=== PATIENT | female | born 1975 | race Caucasian/White ===

== ENCOUNTER 2016-07-17 01:40 | Emergency (ER) | payer OTHER ==
[2016-07-17] MEDS ORDERED: NORMAL SALINE 1,000 ML IV PRN (02:09)
--- NOTE | 2016-07-17 02:12 | ERNOTE ---
ER Female HPI Date of Service: 07/17/16 Stated Complaint: 12.5 WEEKS , HEAVY VAGINAL BLEEDING Presenting Symptoms: vaginal bleeding, other - cramping Time Seen by Provider: 07/17/16 02:05 Source: patient Exam Limitations: no limitations Immunizations: IMMUNIZATION HX Immunizations Up to Date Yes History of Influenza Vaccine Yes Hx Pneumococcal Vaccination No Allergies/Adverse Reactions: Allergies No Known Allergies Allergy (Verified 11/23/15 18:45) Home Medications: HOME MEDICATIONS Labetalol HCl [Trandate] 200 mg PO BID #60 tablet 05/07/15 [Last Taken Unknown] [id number]/FA/Omega3/Dha/Fish Oil [ Gummies] 1 each PO DAILY 07/17/16 [Last Taken Unknown] - History of Present Illness Narrative: Awoke about mid-night with a pool of blood on her bed. Came to ED and started to note cramping. 12 weeks . [id number] Review of Systems - Review of Systems Constitutional: Present: no symptoms reported Respiratory: Present: no symptoms reported Cardiology: Present: no symptoms reported Gastrointestinal/Abdominal: Present: no symptoms reported Genitourinary: Present: no symptoms reported Musculoskeletal: Present: no symptoms reported - Patient's Past Medical History Patient History - Medical: Obesity Patient History - Cardiac/Respiratory: No pertinent hx Patient History - Cancer: No Hx of Cancer Patient History - Surgical Procedures: No surgical history Patient History - Other: None LMP (Calendar): 11/19/13 - Family History Mother Family History - Medical: No pertinent hx Family History - Cardiac/Respiratory: Angina, CVA/Stroke, Hypertension Father Family History - Medical: History Unknown Family History - Cardiac/Respiratory: History Unknown - Social History Living Situations: spouse Abuse History: No History of abuse Psych History: No pertinent hx Does anyone smoke in the home?: No Smoking Status: Never smoker Alcohol Use: none Drug Use: none - Immunizations Immunizations Up to Date: Yes Hx Pneumococcal Vaccination: No History of Influenza Vaccine: Yes Physical Exam - Physical Exam General Appearance: Present: wd/wn, alert, mild distress Eye Exam: Normal inspection: bilateral Ears, Nose, Throat: Present: normal ENT inspection Neck: Present: normal inspection Respiratory: Present: no respiratory distress Cardiovascular/Chest: Present: regular rate, rhythm Gastrointestinal/Abdominal: Present: nontender, soft Pelvic Exam: Present: active bleeding - Large clot and tissue passed prior to exam. Vaginal vault with moderate amount of blood. Cervical os open with stream of BRB. ED Progress - Results and Orders Patient's Lab Results:: I have reviewed the patient's lab results. - Vital Signs Patient's Vital Signs:: I have reviewed the patient's vital signs. Vital Signs: Vital Signs 07/17/16 01:47 Temperature 38.0 C H Pulse Rate 100 Respiratory 18 Rate Blood Pressure 147/101 O2 Sat by Pulse 98 Oximetry - CT/Ultrasound CT/Ultrasound Narrative: No IUP or debrie seen - Progress/Reassessment Chief Complaint: Genitourinary Problem Progress Note-Subjective: 07/17/16 03:48 Feeling better. Cramping and bleeding decreased. US pending. Dr. Lao (on-call) aware and will communicate US results. 07/17/16 05:14 US noted and Rh positive. Dr. Lao aware and advised she follow up with the office in 10-14 days. Plan - Plan Plan: Home Follow up with office Departure Clinical Impression: Spontaneous - Departure Disposition: Home self-care Condition: Good Instructions: Miscarriage, [id number] Additional Instructions: Force fluids Follow up with OB in 10-14 days. Referrals: Richie Bhardwaj DO [Primary Care Provider] -
--- OUTSIDE RECORDS SUMMARY | 2016-07-17 02:13 | XMS REPORT | Continuity of Care Document ---
:1975 Author Organization [facility] ([facility]) Address [address] [place] [address] Phone [phone] Care Team Providers Name Role Phone Provider, No-Primary Care Primary Care Provider Unavailable Source Comments This disclosure is being made pursuant to the Care Everywhere program, applicable federal and state laws, and may not contain all informaitonavailable regarding this patient.[facility] ([facility]) Active Allergies and Adverse Reactions No Known Allergies Current Medications No known medications Active Problems Problem Noted Date Supervision of high-risk 08/05/2014 Advanced maternal age (AMA) in 08/05/2014 abnormality affecting management of mother 08/05/2014 Overview: Short femur Polyhydramnios in third trimester, antepartum complication 08/05/2014 Social History Tobacco Use Types Packs/Day Years Used Date Never Smoker Alcohol Use Drinks/Week oz/Week Comments No Last Filed Vital Signs Vital Sign Reading Time Taken Blood Pressure 135/79 08/05/2014 10:38 AM CDT Pulse 81 08/05/2014 10:38 AM CDT Temperature 36.6 C (97.9 F) 08/05/2014 10:38 AM CDT Respiratory Rate 14 08/05/2014 10:38 AM CDT Height 1.56 m (5' 1.42") 08/05/2014 10:08 AM CDT Weight 96.7 kg (213 lb 3 oz) 08/05/2014 10:38 AM CDT Body Mass Index 39.74 08/05/2014 10:38 AM CDT Oxygen Saturation - - Plan of Care Health Maintenance Due Date Last Done Comments Hepatitis B Vaccine (1 of 3 - Primary Series) 1975 Tdap Vaccine 1988 Lipid Disorder Screening 06/26/1995 MMR Vaccine 06/26/1995 Td Vaccine 06/26/1995 Cervical Cancer Screening 06/26/2007 Influenza Vaccine: Seasonal (#1) 09/06/2015 Results from Last 3 Months Not on file
[2016-07-17 02:21] LABS: Hematocrit 39.5 % (37.0-47.0); Hemoglobin 12.7 gm/dL (12.5-16.0); Mean Cell Volume 82.6 fl (78-100); Mean Corpuscular Hemoglobin 26.6 pg (27-31); Mean Corpuscular Hgb Conc 32.2 g/dl (32-36); Mean Platelet Volume 11.6 fl (6.0-9.5); Neutrophil # 6.6 K/mm3 (1.3-6.0); Neutrophil % 71.6 % (42-75.0); Platelet Count 246 K/mm3 (150-450); Red Blood Count 4.78 M/mm3 (4.2-5.4); Red Cell Distribution Width 15.1 % (11.5-14.0); White Blood Count 9.2 K/mm3 (4.0-10.5)
[2016-07-17] MEDS ORDERED: OXYTOCIN 20 UNITS in RINGERS SOLUTION,LACTATED 1,000 ML IV ONE ×2 (02:49→06:06)
[2016-07-17] MEDS ORDERED: HYDROmorphone HCL 1 MG/ML DISP.SYRIN IV ONE (02:49)
[2016-07-17 03:06] LABS: Albumin * 3.2 gm/dl (3.4-5.0); Anion Gap 15.9 mmol/L (6.8-13.8); BUN/Creatinine Ratio 19.4 (9.0-21.6); Bilirubin, Total 0.2 mg/dL (0.0-1.1); Ca. Corrected For Albumin 8.9 mg/dL (8.4-10.2); Calcium * 8.6 mg/dL (7.9-10.9); Potassium 3.9 mmol/L (3.4-4.6); Total Protein 7.7 gm/dL (6.2-8.2)
[2016-07-17] MEDS ORDERED: HYDROmorphone HCL 1 MG/ML DISP.SYRIN ONE (03:15)
[2016-07-17 05:59] VITALS: BP 127/91
== END 2016-07-17 06:29 | disposition home or self-care (01) ==
LOC: ER 01:40
DX: O03.9 Complete or unspecified spontaneous abortion without complication (principal); Z3A.12 12 weeks gestation of pregnancy